=== PATIENT | male | born 1960 | race Caucasian/White ===

== ENCOUNTER 2017-12-31 23:07 | Emergency (ER) | payer OTHER ==
[~2017-12-31] VITALS: Ht 177.8 cm; Wt 93.8 kg
[2017-12-31 23:08] VITALS: BP 137/85
[2017-12-31] MEDS ORDERED: LIDOCAINE-MPF 1%, 5ML ONE (23:18)
[2017-12-31] MEDS ORDERED: LIDOCAINE 1%, 10ML INFIL ONE (23:30)
[2017-12-31] MEDS ORDERED: DIPH,PERTUSS(ACELL),TET VAC/PF 0.5 ML IM-VACC ONE (23:39)
[2018-01-01] MEDS ORDERED: DIPH,PERTUSS(ACELL),TET VAC/PF 0.5 ML IM-VACC ONE
== END 2018-01-01 | disposition home or self-care (01) ==
LOC: ED 23:55
DX: S61.210A Laceration without foreign body of right index finger without damage to nail, initial encounter (principal); W31.89XA Contact with other specified machinery, initial encounter; Y93.89 Activity, other specified; Y92.009 Unspecified place in unspecified non-institutional (private) residence as the place of occurrence of the external cause; Y99.8 Other external cause status
CPT/HCPCS: 12041; 90471; 90715